=== PATIENT | male | born 1995 | race African-American/Black ===

== ENCOUNTER 2017-01-11 19:55 | Emergency (ER) | payer SELFPAY ==
[~2017-01-11] VITALS: Ht 190.5 cm; Wt 73.0 kg
[2017-01-12 02:15] VITALS: BP 110/68
== END 2017-01-12 02:30 | disposition home or self-care (01) ==
LOC: ER 21:33
DX: L02.211 Cutaneous abscess of abdominal wall (principal); F12.10 Cannabis abuse, uncomplicated
CPT/HCPCS: 99283; Z7610

== ENCOUNTER 2018-12-13 07:54 | Emergency (ER) | payer MEDICAID ==
[~2018-12-13] VITALS: Ht 175.3 cm; Wt 55.0 kg
[2018-12-13] MEDS ORDERED: IBUPROFEN 600MG TABLET PO ONE (08:45)
[2018-12-13 09:45] VITALS: BP 100/60
== END 2018-12-13 10:00 | disposition home or self-care (01) ==
LOC: ER 07:54
DX: R25.2 Cramp and spasm (principal); S00.83XA Contusion of other part of head, initial encounter; J45.909 Unspecified asthma, uncomplicated; V49.59XA Passenger injured in collision with other motor vehicles in traffic accident, initial encounter; Y93.89 Activity, other specified; Y92.410 Unspecified street and highway as the place of occurrence of the external cause; F12.90 Cannabis use, unspecified, uncomplicated
CPT/HCPCS: 93005; 99283

== ENCOUNTER 2019-01-17 03:19 | Emergency (ER) | payer MEDICAID ==
[~2019-01-17] VITALS: Ht 188 cm; Wt 76.3 kg
[2019-01-17] MEDS ORDERED: PREDNISONE 20MG TABLET PO STA (04:09)
[2019-01-17] MEDS ORDERED: ALBUTEROL (0.083%) 2.5MG/3ML NEB HHN STA (04:09)
[2019-01-17] MEDS ORDERED: IPRATROPIUM BROMIDE (0.02%) 0.5MG/2.5ML NEB HHN STA (04:09)
[2019-01-17 04:15] VITALS: BP 116/72
== END 2019-01-17 05:21 | disposition home or self-care (01) ==
LOC: ER 03:19
DX: J45.901 Unspecified asthma with (acute) exacerbation (principal); Z72.0 Tobacco use; F12.90 Cannabis use, unspecified, uncomplicated
CPT/HCPCS: 94640; 99283; J7512; J7611; Z7610